=== PATIENT | female | born 1995 | race Hispanic/Latino ===

== ENCOUNTER 2024-07-18 17:37 | Emergency (ER) | payer OTHER ==
[~2024-07-18] VITALS: Ht 167.6 cm; Wt 104.9 kg
[~2024-07-18 17:37] MED LIST: DOXYCYCLINE HY100 MG PO; VITAFOL-OB+DHA1 EACH PO
[2024-07-18 19:11] VITALS: BP 101/61
== END 2024-07-18 19:15 | disposition home or self-care (01) ==
LOC: ED 17:37
DX: S06.0X0A Concussion without loss of consciousness, initial encounter (principal); W01.198A Fall on same level from slipping, tripping and stumbling with subsequent striking against other object, initial encounter
CPT/HCPCS: 99283

== ENCOUNTER 2025-03-31 14:38 | Emergency (ER) | payer OTHER ==
[~2025-03-31] VITALS: Ht 167.6 cm; Wt 99.0 kg
[2025-03-31 17:40] VITALS: BP 111/66
== END 2025-03-31 17:40 | disposition home or self-care (01) ==
LOC: ED 14:38
DX: F41.9 Anxiety disorder, unspecified (principal); T43.615A Adverse effect of caffeine, initial encounter
CPT/HCPCS: 99283